=== PATIENT | female | born 1985 | race Hispanic/Latino ===

== ENCOUNTER 2017-02-04 10:53 | Emergency (ER) | payer OTHER ==
[2017-02-04 11:18] VITALS: BP 132/82; PULSE 74; RESP 16; TEMP 98.4; O2SAT 98
[2017-02-04] MEDS ORDERED: Sodium Chloride 0.9% 500 ML IV ONE (11:30)
[2017-02-04] MEDS ORDERED: Iohexol 240 (50 ml) PO ONE (11:52)
[2017-02-04] MEDS ORDERED: Iohexol 240 (50 ml) ONE (12:01)
[2017-02-04 12:07] LABS: BASO % 0.5 % (0.0-2.0); EOS # 0.1 K/uL (0.0-0.7); HEMOGLOBIN 14.2 g/dL (12.0-16.0); LYMPH # 1.4 K/uL (1.0-4.3); LYMPH % 25.9 % (20.0-40.0); MEAN CORPUSCULAR HEMOGLOBIN 32.9 pg (27.0-31.0); MEAN CORPUSCULAR HGB CONC 33.3 g/dL (33.0-37.0); MEAN PLATELET VOLUME 9.8 fl (7.2-11.7); MONO # 0.2 K/uL (0.0-0.8); MONO % 4.6 % (0.0-10.0); NEUT # 3.6 K/uL (1.8-7.0); RBC 4.33 Mil/uL (3.80-5.20); RED CELL DISTRIBUTION WIDTH 13.4 % (11.5-14.5); WHITE BLOOD COUNT 5.4 K/uL (4.8-10.8)
--- NOTE | 2017-02-04 12:08 | ED PDOC ---
HPI: Abdomen Time Seen by Provider: 02/04/17 11:08 Chief Complaint (Nursing): Abdominal Pain Chief Complaint (Provider): Abdominal Pain/Vomiting/Constipation History Per: Patient History/Exam Limitations: no limitations Onset/Duration Of Symptoms: Days (x6) Additional Complaint(s): Brittany Forbes is a 31 year old female diagnosed with IBS with constipation by GI doctor through history (no prior CT, endoscopy, or colonoscopy) that presents to the ED with a chief complaint of constipation, vomiting, and abdominal pain. Patient reports that she had 4 episodes of vomiting this morning and developed diffuse abdominal pain, and that she has not had a bowel movement in 6 days. Patient denies any genitourinary symptoms. Past Medical History Reviewed: Historical Data, Nursing Documentation, Vital Signs Vital Signs: Last Vital Signs Temp 98.4 F 02/04/17 11:18 Pulse 74 02/04/17 11:18 Resp 16 02/04/17 11:18 BP 132/82 02/04/17 11:18 Pulse Ox 98 02/04/17 16:46 - Medical History PMH: Denies: Chronic Kidney Disease Other PMH: IBS with constipation - Family History Family History: States: Unknown Family Hx - Home Medications Home Medications: Ambulatory Orders Medication Instructions Recorded Linaclotide [Linzess] 290 mcg PO DAILY #30 capsule 02/04/17 - Allergies Allergies/Adverse Reactions: Allergies Allergy/AdvReac Type Severity Reaction Status Date / Time adhesive tape Allergy RASH Verified 02/04/17 11:23 amoxicillin Allergy RASH Verified 02/04/17 11:23 Penicillins Allergy RASH Verified 02/04/17 11:23 Review of Systems Gastrointestinal: Positive for: Vomiting (x4 episodes this morning), Abdominal Pain (diffuse), Constipation (no BM in 6 days) Genitourinary Female: Negative for: Dysuria, Hematuria, Vaginal Bleeding Physical Exam - Reviewed Nursing Documentation Reviewed: Yes Vital Signs Reviewed: Yes - Physical Exam Appears: Positive for: Non-toxic, No Acute Distress Head Exam: Positive for: ATRAUMATIC, NORMOCEPHALIC Skin: Positive for: Normal Color, Warm Eye Exam: Positive for: Normal appearance, EOMI, PERRL Cardiovascular/Chest: Positive for: Regular Rate, Rhythm. Negative for: Murmur Respiratory: Positive for: Normal Breath Sounds. Negative for: Wheezing Gastrointestinal/Abdominal: Positive for: Normal Exam, Soft. Negative for: Tenderness Back: Positive for: Normal Inspection. Negative for: L CVA Tenderness, R CVA Tenderness Extremity: Positive for: Normal ROM Neurologic/Psych: Positive for: Alert, Oriented. Negative for: Motor/Sensory Deficits - Laboratory Results Result Diagrams: 02/04/17 12:00 02/04/17 12:00 - ECG O2 Sat by Pulse Oximetry: 98 (RA) Pulse Ox Interpretation: Normal Medical Decision Making Medical Decision Making: Impression: IBS Plan: * CT Abd Pelvis with PO and IV Contrast * CMP * CBC * Lipase * Magnesium * Phosphorous * Urine Dip * Urine Preg * Iohexol 50 ml PO * Pepcid 20 mg IV * Toradol 30 mg IV * Zofran 4 mg IV * NaCl 500 mLs at 500 mLs/hr * Reevaluation 12:35PM Labs grossly normal. UA shows trace leukocytes and trace blood. No complaint of dysuria or flank pain. Poc negative. Reports pain improved. P:CT PROCEDURE: CT scan of the abdomen pelvis dated 02/04/2017. HISTORY: Abdominal pain with constipation. COMPARISON: No prior study available comparison TECHNIQUE: Contiguous axial images of the abdomen and pelvis pelvis performed following oral and intravenous injection of approximately 95 cc Omnipaque 300 contrast material. . Coronal and Sagittal reformats generated. Radiation dose: Total exam DLP = 919.98 mGy-cm. This CT exam was performed using one or more of the following dose reduction techniques: Automated exposure control, adjustment of the mA and/or kV according to patient size, and/or use of iterative reconstruction technique. FINDINGS: LOWER THORAX: Some minor nodular and linear pleural-based density seen in the posterior sulci right greater than left likely postinflammatory. No focal consolidation. No evidence of basilar pneumothorax. There is a small hiatal hernia. Heart size within range of normal. No significant pericardial effusion. LIVER: The liver is upper limits of normal/ borderline enlarged measuring nearly 19 cm in CC dimension. Mild diffuse fatty hepatic infiltration. Small approximately 16 mm x 13 mm elliptical shaped low-attenuation lesion inferior margin right lobe liver of uncertain etiology. This could represent a small hemangioma. Follow-up triple phase CT scan of the liver could be performed to confirm and exclude other pathology. Portal and splenic veins are opacified. GALLBLADDER AND BILE DUCTS: Gallbladder is physiologically distended. No evidence of intraluminal gallbladder calculi. Common bile duct is dilated estimated at approximately 8.8 mm. Consider follow-up of MRCP if clinically indicated. PANCREAS: Visualized portions the pancreas appear grossly unremarkable without obvious mass collection or calcification. Pancreatic duct is partially visualized though does not appear significantly dilated. SPLEEN: Unremarkable. No splenomegaly. ADRENALS: No adrenal lesions. KIDNEYS AND URETERS: Kidneys demonstrate symmetric nephrograms. No evidence of nephrolithiasis or hydronephrosis. BLADDER: Urinary bladder is physiologically distended. No evidence of intraluminal urinary bladder calculi REPRODUCTIVE: The uterus appears unremarkable. As mentioned below there is small amount of free fluid in the pelvis nonspecific. APPENDIX: Appendix is not seen with certainty on this study however no obvious inflammatory changes right lower quadrant of the abdomen. BOWEL: Evaluation of the bowel is somewhat limited due to incomplete opacification. Stomach is incompletely distended which presumably accounts for slight thick- walled appearance. Visualized loops small bowel exhibit normal contour and caliber. No evidence of acute mechanical small bowel obstruction. Ho Oral contrast material has extended into the colon to the level of the distal descending colon. There is a moderately large amount of stool within the descending and redundant sigmoid colon consistent with this patient's history of constipation. No definitive abnormal mural wall thickening. PERITONEUM: There is a small amount of free fluid seen within the pelvis nonspecific. LYMPH NODES: No significant bulky adenopathy. VASCULATURE: Unremarkable. No aortic aneurysm. BONES: No fracture or destructive lesion. OTHER FINDINGS: None. IMPRESSION: Findings consistent with mild constipation as described. Mild mild hepatomegaly with fatty hepatic infiltration. Suspect small hemangioma right lobe liver however consider followup triple phase CT scan of the liver to confirm and exclude other pathology. Dilated common bile duct nonspecific. Consider follow-up MRCP or ERCP if clinically indicated. Small amount of free fluid within the pelvis nonspecific. Scribe Attestation: Documented by Flora Hill, acting as a scribe for Roxanne George MD. Provider Scribe Attestation: All medical record entries made by the Scribe were at my direction and personally dictated by me. I have reviewed the chart and agree that the record accurately reflects my personal performance of the history, physical exam, medical decision making, and the department course for this patient. I have also personally directed, reviewed, and agree with the discharge instructions and disposition. Disposition - Clinical Impression Clinical Impression: Fatty liver, Constipation, Liver hemangioma - Disposition Disposition: Routine/Home Disposition Time: 16:40 Condition: GOOD Additional Instructions: Follow-up with your PMD within 2 days. Increase your fiber and fluid intake. Follow-up with PMD and GI for incidental findings found on CT including but not limited to hemangioma, fatty liver, and dilated bile duct. See full CT report. Return immediately with any worsening symptoms. Take linzess as prescribed by GI MD. Prescriptions: Linaclotide [Linzess] 290 mcg PO DAILY #30 capsule Instructions: Constipation (ED), High Fiber Diet (ED) Forms: J[employer] (Malay)
[2017-02-04 12:32] LABS: ALB/GLOB RATIO 1.3 (1.0-2.1); ALBUMIN 4.1 g/dL (3.5-5.0); ALT/SGPT 33 U/L (9-52); AST/SGOT 21 U/L (14-36); BLOOD UREA NITROGEN 13 mg/dl (7-17); CALCIUM 9.8 mg/dL (8.4-10.2); GFR AFRICAN-AMERICAN > 60; GFR NON-AFRICAN AMERICAN > 60; LIPASE 172 U/L (23-300); MAGNESIUM 1.7 MG/DL (1.6-2.3)
[2017-02-04] MEDS ORDERED: Sodium Chloride 0.9% 50 ML IV ONE (14:42)
[2017-02-04] MEDS ORDERED: Iohexol 300 100 ML IJ ONE (14:42)
--- NOTE | 2017-02-04 16:39 | CT ---
PROCEDURE: CT scan of the abdomen pelvis dated 02/04/2017. HISTORY: Abdominal pain with constipation. COMPARISON: No prior study available comparison TECHNIQUE: Contiguous axial images of the abdomen and pelvis pelvis performed following oral and intravenous injection of approximately 95 cc Omnipaque 300 contrast material. . Coronal and Sagittal reformats generated. Radiation dose: Total exam DLP = 919.98 mGy-cm. This CT exam was performed using one or more of the following dose reduction techniques: Automated exposure control, adjustment of the mA and/or kV according to patient size, and/or use of iterative reconstruction technique. FINDINGS: LOWER THORAX: Some minor nodular and linear pleural-based density seen in the posterior sulci right greater than left likely postinflammatory. No focal consolidation. No evidence of basilar pneumothorax. There is a small hiatal hernia. Heart size within range of normal. No significant pericardial effusion. LIVER: The liver is upper limits of normal/ borderline enlarged measuring nearly 19 cm in CC dimension. Mild diffuse fatty hepatic infiltration. Small approximately 16 mm x 13 mm elliptical shaped low-attenuation lesion inferior margin right lobe liver of uncertain etiology. This could represent a small hemangioma. Follow-up triple phase CT scan of the liver could be performed to confirm and exclude other pathology. Portal and splenic veins are opacified. GALLBLADDER AND BILE DUCTS: Gallbladder is physiologically distended. No evidence of intraluminal gallbladder calculi. Common bile duct is dilated estimated at approximately 8.8 mm. Consider follow-up of MRCP if clinically indicated. PANCREAS: Visualized portions the pancreas appear grossly unremarkable without obvious mass collection or calcification. Pancreatic duct is partially visualized though does not appear significantly dilated. SPLEEN: Unremarkable. No splenomegaly. ADRENALS: No adrenal lesions. KIDNEYS AND URETERS: Kidneys demonstrate symmetric nephrograms. No evidence of nephrolithiasis or hydronephrosis. BLADDER: Urinary bladder is physiologically distended. No evidence of intraluminal urinary bladder calculi REPRODUCTIVE: The uterus appears unremarkable. As mentioned below there is small amount of free fluid in the pelvis nonspecific. APPENDIX: Appendix is not seen with certainty on this study however no obvious inflammatory changes right lower quadrant of the abdomen. BOWEL: Evaluation of the bowel is somewhat limited due to incomplete opacification. Stomach is incompletely distended which presumably accounts for slight thick-walled appearance. Visualized loops small bowel exhibit normal contour and caliber. No evidence of acute mechanical small bowel obstruction. Ho Oral contrast material has extended into the colon to the level of the distal descending colon. There is a moderately large amount of stool within the descending and redundant sigmoid colon consistent with this patient's history of constipation. No definitive abnormal mural wall thickening. PERITONEUM: There is a small amount of free fluid seen within the pelvis nonspecific. LYMPH NODES: No significant bulky adenopathy. VASCULATURE: Unremarkable. No aortic aneurysm. BONES: No fracture or destructive lesion. OTHER FINDINGS: None. IMPRESSION: Findings consistent with mild constipation as described. Mild mild hepatomegaly with fatty hepatic infiltration. Suspect small hemangioma right lobe liver however consider followup triple phase CT scan of the liver to confirm and exclude other pathology. Dilated common bile duct nonspecific. Consider follow-up MRCP or ERCP if clinically indicated. Small amount of free fluid within the pelvis nonspecific.
== END 2017-02-04 17:10 | disposition home or self-care (01) ==
LOC: H.ER 10:53
DX: K76.0 Fatty (change of) liver, not elsewhere classified (principal); D18.03 Hemangioma of intra-abdominal structures; K58.9 Irritable bowel syndrome, unspecified; Z88.0 Allergy status to penicillin; K59.00 Constipation, unspecified
CPT/HCPCS: 74177; 80053; 81025; 83690; 83735; 84100; 85025; 96374; 96375; 99283; J1885; J2405; J7040; Q9966; Q9967